=== PATIENT | female | born 1960 | race Caucasian/White ===

== ENCOUNTER 2022-11-30 18:01 | Outpatient (REF) | payer MEDICAID, SELFPAY | END 2022-11-30 18:02 | disposition home or self-care (01) | LOC: NCHCN 18:01 | PROVIDERS: Visit Provider Family Medicine | DX: N39.0 Urinary tract infection, site not specified (principal) | CPT/HCPCS: 87086 ==

== ENCOUNTER 2023-08-22 09:01 | Outpatient (REF) | payer MEDICAID, SELFPAY ==
[2023-08-22 15:16] LABS: BUN 14 mg/dL (7-18); CREATININE 0.8 mg/dL (0.55-1.02); Calcium 9.6 mg/dL (8.5-10.1); Calculated LDL 136 mg/dL (<100); Chloride 105 mmol/L (98-107); Cholesterol 235 mg/dL (<200); Estimated GFR 83.26 (mL/min/1.73m2); Glucose 97 mg/dL (74-106); HDL Cholesterol 70 mg/dL (40-60); Potassium 4.1 mmol/L (3.5-5.1); Sodium 143 mmol/L (136-145); Triglyceride 147 mg/dL (<150)
== END 2023-08-22 09:02 | disposition home or self-care (01) ==
LOC: NCHCN 09:01
PROVIDERS: Visit Provider Family Medicine
DX: Z00.00 Encounter for general adult medical examination without abnormal findings (principal)
CPT/HCPCS: 80048; 80061

== ENCOUNTER 2023-11-11 18:16 | Outpatient (REF) | payer MEDICAID, SELFPAY ==
[2023-11-11 21:11] LABS: Bilirubin Negative (Negative); Blood Trace-intact (Negative); Clarity Clear (Clear); Glucose Negative (Negative); Ketones Negative (Negative); Leukocyte Esterase Negative (Negative); Nitrite Negative (Negative); Urobilinogen 0.2 mg/dL (Up to 0.2)
[2023-11-11 21:34] LABS: Epithelial Cells Negative HPF (Negative); RBC 0-2 HPF (0-2); WBC Negative HPF (0-5)
[2023-11-11 21:35] LABS: Bacteria Negative HPF (Negative); C & S Indicated? No; Crystals Negative HPF (Negative); Mucus Negative (Negative)
== END 2023-11-11 18:17 | disposition home or self-care (01) ==
LOC: NCHCN 18:16
PROVIDERS: Visit Provider Family Medicine
DX: R82.998 Other abnormal findings in urine (principal); R10.9 Unspecified abdominal pain
CPT/HCPCS: 81003; 81015

== ENCOUNTER 2024-08-21 13:22 | Outpatient (REF) | payer MEDICAID, SELFPAY ==
[2024-08-21 15:10] LABS: Anion Gap 4.7 mmol/L (3-11); BUN 13 mg/dL (7-18); CO2 31.3 mmol/L (21.0-32.0); CREATININE 0.8 mg/dL (0.55-1.02); Calcium 9.1 mg/dL (8.5-10.1); Calculated LDL 129 mg/dL (<100); Chloride 104 mmol/L (98-107); Cholesterol 221 mg/dL (<200); Estimated GFR 82.74 (mL/min/1.73m2); Glucose 96 mg/dL (74-106); HDL Cholesterol 66 mg/dL (>or=50); Sodium 140 mmol/L (136-145); Triglyceride 132 mg/dL (<150)
== END 2024-08-21 13:23 | disposition home or self-care (01) ==
LOC: NCHCN 13:22
PROVIDERS: PCP Family Medicine; Visit Provider Family Medicine
DX: Z13.220 Encounter for screening for lipoid disorders (principal); Z00.00 Encounter for general adult medical examination without abnormal findings
CPT/HCPCS: 80048; 80061